=== PATIENT | male | born 1990 | race Caucasian/White ===

== ENCOUNTER 2023-11-21 14:36 | Emergency (ER) | payer BC ==
[~2023-11-21] VITALS: Ht 182.9 cm; Wt 95.3 kg
[2023-11-21] MEDS ORDERED: GABA-331 PO (14:52)
[2023-11-21 15:06] VITALS: BP_SYST 138; PULSE 88; RESP 18; TEMP 97.5
[2023-11-21 15:15] VITALS: BP_SYST 138; PULSE 88; RESP 18; TEMP 97.5; O2SAT 98
== END 2023-11-21 15:15 | disposition home or self-care (01) ==
LOC: SED 14:36
DX: F31.9 Bipolar disorder, unspecified (principal); Z76.0 Encounter for issue of repeat prescription
CPT/HCPCS: 99281